=== PATIENT | male | born 1950 | race Caucasian/White ===

== ENCOUNTER 2021-09-05 20:23 | Inpatient (IN) | payer MEDICARE, BC, SELFPAY ==
[2021-09-05] VITALS (7 sets, daily range): BP systolic 194–224; BP diastolic 87–130; PULSE 71–78; RESP 15–16; TEMP 36.1–36.7; O2SAT 98–99; BMI 37.7
--- NOTE | 2021-09-05 20:43 | EKG12_ITS ---
Test Reason : HIGH BP Blood Pressure : / mmHG Vent. Rate : 078 BPM Atrial Rate : 468 BPM P-R Int : 000 ms QRS Dur : 096 ms QT Int : 394 ms P-R-T Axes : 000 056 054 degrees QTc Int : 449 ms Atrial fibrillation Septal infarct , age undetermined Abnormal ECG Confirmed by TYLER CHRIS, JOCELYN ([id number]), editorial clerk DENITA HELLER ([id number]) on 09/08/2021 11:10:20 AM Referred By: MEG Confirmed By:JOCELYN SCOTT MD
--- NOTE | 2021-09-05 20:44 | EX.ED.DYSGE1 ---
HPI History of Present Illness Chief Complaint: Hypertension Detail of Chief Complaint: High blood pressure Informant: patient Narrative Narrative: Patient presents to the emergency department with complaint of elevated blood pressure over the last 3 days. Patient states that he has a blood pressure cuff at home and has been checking it regularly and has noted that over the last 3 days his systolics been over 200. Patient denies headache, chest pain, or shortness of breath. Patient says she has no complaints with it. Patient states he has been on blood pressure medicine for quite some time and normally his pressure runs around 148/84. Patient denies recent illness. [facility] Medical History (Updated 09/05/21 @ 22:[address] Chanda Palm, DO) Hypertension Home Medications lisinopril-hydrochlorothiazide 1 tab PO DAILY 09/05/21 [History Last Taken Unknown] multivitamin 1 cap PO DAILY 09/05/21 [History Last Taken Unknown] omega-3 fatty acids [Fish Oil] 1,000 mg PO DAILY 09/05/21 [History Last Taken Unknown] Allergy/AdvReac Type Severity Reaction Status Date / Time No Known Allergies Allergy Verified 09/05/21 20:25 Social History Smoking Status: Never smoker [facility] ED Constitutional Constitutional ED: Reports systems reviewed and no addt'l complaints, except as documented; Denies body ache(s), change in weight or chills Eyes Eyes: Denies acute decrease in peripheral vision, change in vision, double vision or loss of vision ENT ENT ED: Reports none; Denies ear pain, lip swelling, loss taste/smell, neck pain, otalgia or sore throat Cardiovascular Cardiovascular: Reports none; Denies abdominal pain, chest pain with activity, leg edema, lightheadedness, palpitations, rapid heart rate or syncope Respiratory/Chest Respiratory/Chest: Reports none; Denies change in mental status, dry cough, dyspnea, hemoptysis, shortness of breath at rest or shortness of breath with exertion Gastrointestinal Gastrointestinal: Reports none; Denies abdominal pain, change in stool character, diarrhea, hematemesis, hematochezia, melena, rectal bleeding or vomiting Genitourinary Genitourinary ED: Reports none; Denies abdominal discomfort, anuria, dysuria, genital pain or polyuria Musculoskeletal Musculoskeletal: Reports none; Denies arthralgias, back pain, difficulty walking, extremity pain, muscle weakness or myalgias Integumentary Reports none; Denies abscess or rash Neurologic Neurologic: Reports none; Denies abnormal gait, confusion, focal weakness, frequent falls, headache(s), loss of vision, numbness, paresthesias, radicular pain, vertigo or weakness Psychiatric Psychiatric: Reports systems reviewed and no addt'l complaints, except as documented and none; Denies behavioral changes, confusion, difficulty concentrating, hallucinations, suicidal ideation, tactile hallucinations or visual hallucinations Endocrine Endocrinology: Denies none, cold intolerance, excessive sweating, fatigue or heat intolerance Hematologic/Lymphatic Hematologic/Lymphatic: Reports none; Denies anemia, easy bleeding or easy bruising Allergic/Immunologic Allergic/Immunologic ED: Denies as per HPI, none, lip swelling, mouth swelling, throat swelling, tongue swelling or hives EXAM Physical Exam Const Vital Signs: 09/05/21 20:25 09/05/21 20:37 09/05/21 20:40 Temperature 96.9 F L Temperature Source Temporal Pulse Rate 78 Respiratory Rate 16 Respiratory Effort Normal Non-Labored Respiratory Pattern Normal Blood Pressure 224/114 H 210/108 H Blood Pressure Mean 150 142 Pulse Ox 98 Oxygen Delivery Method Room Air 09/05/21 21:33 Temperature Temperature Source Pulse Rate Respiratory Rate Respiratory Effort Respiratory Pattern Blood Pressure 215/130 H Blood Pressure Mean 158 Pulse Ox Oxygen Delivery Method Positive well nourished and well developed General Appearance ED: well developed and NAD HEENT Reports TM's clear and moist mucous membranes normocephalic and atraumatic; Negative for trauma or tenderness Tympanic Membrane ED: Yes TM's clear Eyes PERRL and EOMs intact bilaterally General Eye ED: Negative for pale conjunctiva or scleral icterus Neck no lymphadenopathy, supple and no JVD General: Negative for tenderness Chest Wall inspection of chest normal and palpation of chest normal Chest: Negative for tenderness Resp normal respiratory effort and clear to auscultation bilaterally Effort and Inspection: Negative for respiratory distress or pain with movement Auscultation: Negative for rhonchi, wheezes or diminished lung sounds Cardio regular rate, regular rhythm, S1 normal heart sound, S2 normal heart sound and no murmurs Peripheral Pulses: pulses 2+ throughout GI normal to inspection, nondistended, normoactive bowel sounds, soft to palpation, non-tender, non-distended and no masses Back/Spine no CVA tenderness and no thoracic nor lumbar tenderness Extremity normal to inspection General Extremety ED: Negative for edema General Extremity: Negative for edema Neuro oriented x3, CN's II-XII intact bilaterally, no sensory deficits noted and gait normal Sensorium / Orientation: awake, alert, oriented to person, oriented to place and oriented to time Motor Exam: strength 5/5 throughout and strength abnormal Psych mental status grossly normal Skin no rashes or lesions noted and no wounds MDM MDM MDM Narrative Medical decision making narrative: IV line established on arrival. EKG obtained showed atrial fibrillation. Patient's heart rate in the 70s. He was given hydralazine 5 mg IV for lowering of his blood pressure. Case was discussed with hospitalist will evaluate patient for admission for new onset A. fib and hypertension that is uncontrolled. Patient has a CHADS2 score of 2. Lab Data Attestation: I reviewed the patient's lab results. Labs: Laboratory Results - last 24 hr 09/05/21 09/05/21 20:52 20:52 WBC 10.4 RBC 5.69 Hgb 16.0 Hct 47.6 MCV 83.7 MCH 28.1 MCHC 33.6 RDW Std Deviation 41.4 RDW Coeff of Barby 13.6 Plt Count 219 MPV 12.2 H Immature Gran % (Auto) 0.300 Neut % (Auto) 59.5 Lymph % (Auto) 28.9 [place] % (Auto) 8.8 Eos % (Auto) 2.0 Baso % (Auto) 0.5 Absolute Neuts (auto) 6.2 Absolute Lymphs (auto) 2.99 Nucleated RBC % 0 Sodium 139 Potassium 3.6 Chloride 103 Carbon Dioxide 27.0 Anion Gap 9 BUN 16 Creatinine 1.08 Estim Creat Clear Calc 62.45 Est GFR (MDRD) Af Amer 87 Est GFR (MDRD) Non-Af 72 BUN/Creatinine Ratio 14.8 Glucose 118 H Calcium 9.8 Troponin I High Sens 12 EKG Initial EKG: Attestation: I personally reviewed and interpreted this EKG as follows: Comments: Atrial fibrillation with ventricular rate of 78 bpm with old septal infarct Discharge Plan Dx/Rx/DC Orders Clinical Impression: Atrial fibrillation, Hypertension Disposition Disposition: Acute Care [facility]
[2021-09-05 21:09] LABS: Absolute Lymphocyte Count 2.99 X10^3/uL (0.83-4.51); Absolute Neutrophil Count 6.2 X10^3/uL (2.0-7.7); Basophil# 0.05 X10^3/uL; Basophil% 0.5 % (0-1); Eosinophil# 0.21 X10^3/uL; Hematocrit 47.6 % (40-54); Lymphocyte # 2.99 X10^3/ul (0.83-4.51); Lymphocyte % 28.9 % (19-41); Mean Corp Hgb Conc 33.6 g/dL (32-36); Mean Corpuscular Hgb 28.1 pg (27.0-32.0); Mean Corpuscular Volume 83.7 fL (80-94); Mean Platelet Vol. 12.2 fl (6.2-12.0); Monocyte# 0.91 X10^3/uL; Monocyte% 8.8 % (0-10); NRBC Flagged by Analyzer 0 % (0-5); Neutrophil # 6.17 X10^3/uL (2.7-7.7); Neutrophil % 59.5 % (47-70); Platelet Count 219 K/mm3 (150-450); RBC Distribution Width CV 13.6 % (11.6-14.6); RBC Distribution Width SD 41.4 fl (35.1-43.9); Red Blood Count 5.69 M/mm3 (4.6-6.2); White Blood Count 10.4 K/mm3 (4.4-11.0)
[2021-09-05 21:26] LABS: Anion Gap 9 (5-15); BUN 16 mg/dL (7-18); BUN/Creat Ratio 14.8 RATIO (10-20); Calcium,Total 9.8 mg/dL (8.5-10.1); Chloride 103 mmol/L (98-107); Creatinine, Serum 1.08 mg/dL (0.70-1.30); EST Glomerular Filtration Rate 72 mL/min (>60); Est Glom Filt Rate - Afr Amer 87 mL/min (>60); Estimated Creatinine Clearance 62.45 ml/min; Glucose 118 mg/dL (74-106); Potassium 3.6 mmol/L (3.5-5.1); Sodium Level 139 mmol/L (136-145); Troponin-I HS 12 pg/mL (3.0-78.0)
[2021-09-05] MEDS: hydrALAZINE 20 MG/ML Vial 5 MG IV ×2 (21:33→23:55)
--- NOTE | 2021-09-05 22:38 | PCM.HP.STD ---
[facility] - General General Date of Admission: 09/05/21 HPI Narrative ROLY JOSHUA, is a 70 M with a significant history of hypertension and borderline diabetes who presents to emergency department with a 3-day history of persistent hypertension. He reports his home blood pressure has been going to the 200s and then it will come back down. Patient takes lisinopril 20 mg?hydrochlorothiazide 25 mg each morning that he is compliant with. He reports that outside the regimen above about a year ago or some years back he was placed on an extra 10 mg of lisinopril at night but he thought it was not working so he stopped taking the extra dose of lisinopril. He reports that 2 days before presentation his PCP resume him on the extra 10 mg of lisinopril that he has been compliant with except on the night of presentation. At the emergency department his systolic blood pressure was in the 220s. At the Emergency Department he was noticed to be in Afib with controlled ventricular rate. [facility] Medical History Hypertension Home Medications lisinopril 10 mg PO QHS 09/05/21 [History Last Taken Unknown] lisinopril-hydrochlorothiazide 1 tab PO DAILY 09/05/21 [History Last Taken Unknown] multivitamin 1 cap PO DAILY 09/05/21 [History Last Taken Unknown] omega-3 fatty acids [Fish Oil] 1,000 mg PO DAILY 09/05/21 [History Last Taken Unknown] Allergy/AdvReac Type Severity Reaction Status Date / Time No Known Allergies Allergy Verified 09/05/21 20:25 Family History Other Cancer Surgical History no surgical history no surgical history Social History Smoking Status: Never smoker ROS ROS Narrative Constitutional: Denies fever, chills, fatigue, anorexia and change in weight Eyes: Denies blurry vision, change in eye color, change in vision, discharge from eye(s), double vision, erythema, eye pain, loss of vision or other HEENT: Denies abnormal hearing, dysphagia, ear pain, epistaxis, headache(s), hearing loss, nasal congestion, nasal discharge, post nasal drip, sinus pressure, sore throat or other Cardiovascular: Denies chest pain or palpitations. Denies dyspnea on exertion, orthopnea and paroxysmal nocturnal dyspnea Respiratory/Chest: Denies cough, excessive phlegm production, shortness of breath with exertion and wheezing Gastrointestinal: Denies abdominal pain, coffee ground emesis, constipation, diarrhea, dyspepsia, hematemesis, hematochezia, loose stools, melena, nausea, vomiting or other Genitourinary: Denies burning urination, difficulty urinating, dysuria, hematuria, nocturia, urinary frequency, urinary hesitancy, urinary incontinence, urinary urgency or other Musculoskeletal: Denies arthralgias, back pain, joint pain, joint stiffness, joint swelling, myalgias, neck pain or other Neurologic: Denies abnormal gait, abnormal speech, confusion, disequilibrium, dizziness, focal weakness, headache(s), numbness, paresthesias, seizure-like activity, seizures, syncope, tingling, tremor(s) or other Psychiatric: Denies anxiety, depression, homicidal ideation, suicidal ideation or other Endocrinology: Denies change in body appearance, cold intolerance, excessive sweating, heat intolerance, polydipsia, polyuria or other Hematologic/Lymphatic: Denies anemia, easy bleeding, easy bruising, lymphadenopathy or other Integumentary: Denies rashes Allergic/Immunologic: Denies rhinitis, hives, eczema, asthma or other Vital Signs Vital Signs Vital Signs: 09/05/21 20:25 09/05/21 20:37 09/05/21 20:40 Temperature 96.9 F L Temperature Source Temporal Pulse Rate 78 Respiratory Rate 16 Respiratory Effort Normal Non-Labored Respiratory Pattern Normal Blood Pressure 224/114 H 210/108 H Blood Pressure Mean 150 142 Pulse Ox 98 Oxygen Delivery Method Room Air 09/05/21 21:33 Temperature Temperature Source Pulse Rate Respiratory Rate Respiratory Effort Respiratory Pattern Blood Pressure 215/130 H Blood Pressure Mean 158 Pulse Ox Oxygen Delivery Method Weight Weight: 112.491 kg Body Mass Index (BMI) 37.7 Physical Exam Narrative Physical exam: General: Well-nourished, well-developed. Head: Normocephalic, atraumatic, no tenderness Eyes: PERRLA, EOMI ENT, no trauma, moist mucous membranes, no rhinorrhea Neck: Nontender, full range of motion, no spinal tenderness, deformities, step-off CVS: Regular rate and rhythm. S1-S2 present. No murmur, gallop or rub. Respiratory : clear to auscultation bilaterally, chest wall nontender, no wheezing Abdomen: Soft, nontender, nondistended, normal bowel sounds, no masses : Deferred Back: Nontender, no CVA tenderness, no midline spinal tenderness, deformities, step-offs Extremities: Nontender full range of motion, no trauma Skin: Normal color, no trauma, abrasions Neuro: Alert, oriented, cranial nerves II through XII grossly intact. Psychiatry: Normal mood. Normal affect. Not depressed. Not anxious. Results Lab / Micro Data Result Diagrams: 09/05/21 20:52 09/05/21 20:52 Labs: Laboratory Results - last 24 hr 09/05/21 20:52: WBC 10.4, RBC 5.69, Hgb 16.0, Hct 47.6, MCV 83.7, MCH 28.1, MCHC 33.6, RDW Std Deviation 41.4, RDW Coeff of Barby 13.6, Plt Count 219, MPV 12.2 H, Immature Gran % (Auto) 0.300, Neut % (Auto) 59.5, Lymph % (Auto) 28.9, [place] % (Auto) 8.8, Eos % (Auto) 2.0, Baso % (Auto) 0.5, Absolute Neuts (auto) 6.2, Absolute Lymphs (auto) 2.99, Nucleated RBC % 0 09/05/21 20:52: Sodium 139, Potassium 3.6, Chloride 103, Carbon Dioxide 27.0, Anion Gap 9, BUN 16, Creatinine 1.08, Estim Creat Clear Calc 62.45, Est GFR (MDRD) Af Amer 87, Est GFR (MDRD) Non-Af 72, BUN/Creatinine Ratio 14.8, Glucose 118 H, Calcium 9.8, Troponin I High Sens 12 Assessment & Plan Assessment/Plan (1) Hypertensive urgency: (2) Atrial fibrillation: QUALIFIERS: Atrial fibrillation type: unspecified Qualified Code(s): I48.91 - Unspecified atrial fibrillation PLAN: Hypertensive urgency We will give him an extra dose of his lisinopril?hydrochlorothiazide 20 mg - 25 mg. And then will start him on double dose of this regimen.. Hydralazine every 4 hours as to keep blood pressure below 170. Plan is to keep systolic blood pressure less than 25% of highest for the next 24 hours. Newly diagnosed a flutter/A. fib Telemetric strip on monitor personal interpreted showed a flutter and atrial fibrillation with controlled ventricular rate. Review of labs showed potassium of 3.6. Replace potassium. Check magnesium. Check TSH. Get echocardiogram. Start patient on Eliquis. Trend BMP DVT prophylaxis: Not indicated as patient has been started on Eliquis for A. fib. Charges/Coding Visit Charges Inpatient E&M: 47119 Init Hosp L3
[2021-09-05 22:58] LABS: Magnesium 2.2 mg/dL (1.6-2.6)
--- NOTE | 2021-09-05 23:01 | ECHOD_ITS ---
Reason For Study: A. fib Procedure This was a 2D Doppler, Color Flow transthoracic echocardiogram. Exam performed portable in patient room. Left Ventricle Normal LV size. Severe concentric left ventricular hypertrophy. Left ventricular systolic function is normal. The estimated ejection fraction is 60 %. Unable to assess diastolic dysfunction due to arrhythmia. No regional wall motion abnormalities noted. Right Ventricle Normal RV size. Normal systolic function. Atria The left atrium is mildly enlarged. Normal right atrium. Mitral Valve Normal mitral valve. Tricuspid Valve Normal tricuspid valve. Mild to moderate (1-2+) tricuspid valve insufficiency. Pulmonary artery systolic pressure is 46 mmHg. Aortic Valve Trisinus/trileaflet aortic valve. Mild focal aortic valve calcification. Pulmonic Valve Normal pulmonic valve. Great Vessels Mild to moderately dilated aortic root. The pulmonary artery is normal size. Normal inferior vena cava. Pericardium/Pleural No pericardial effusion. MMode/2D Measurements & Calculations LVIDd: 3.3 cm IVSd: 2.0 cm Ao root diam: 4.0 cm LVIDs: 1.8 cm LVPWd: 1.5 cm RVDd: 3.3 cm FS: 45.2 % LAV(MOD-bp): 80.9 ml LA A4 area: 22.9 cm2 LA dimension(2D): 4.4 cm LAV(MOD-bp) Indexed: 36.1 ml/m2 LAV(MOD-sp2): 89.3 ml LAV(MOD-sp4): 72.0 ml RA A4 area: 21.9 cm2 Doppler Measurements & Calculations MV E max peng: 133.9 cm/sec Ao V2 max: 151.2 cm/sec LV V1 max: 126.9 cm/sec Ao max P.1 mmHg LV V1 max P.5 mmHg PA V2 max: 101.0 cm/sec TR max peng: 326.2 cm/sec TR max P.6 mmHg ECHO/Echo Complete Interpretation Summary Normal LV size. Severe concentric left ventricular hypertrophy. Left ventricular systolic function is normal. The estimated ejection fraction is 60 %. Pulmonary artery systolic pressure is 46 mmHg. Unable to assess diastolic dysfunction due to arrhythmia. Ordering Physician: Aamir Lucas Referring Physician: Morgan Amezquita Performed By: Le Gonsales RDCS
[2021-09-05] MEDS: APIXABAN 5 MG TABLET PO (23:51)
[2021-09-06] VITALS (7 sets, daily range): BP systolic 156–189; BP diastolic 86–98; PULSE 83–94; RESP 18–19; TEMP 36.1–36.8; O2SAT 95–96
[2021-09-06] MEDS: Potassium Chloride Oral Tablet 20 MEQ 40 MEQ PO (00:32)
[2021-09-06] MEDS: hydrALAZINE 20 MG/ML Vial 5 MG IV (05:25)
--- NOTE | 2021-09-06 05:33 | PCS.PANDOC ---
PANDEMIC DOCUMENTATION INITIATED: Date: 09/05/2021 Time: 3985
[2021-09-06 08:00] LABS: Anion Gap 9 (5-15); BUN 14 mg/dL (7-18); BUN/Creat Ratio 17.7 RATIO (10-20); Calcium,Total 9.4 mg/dL (8.5-10.1); Chloride 107 mmol/L (98-107); Creatinine, Serum 0.79 mg/dL (0.70-1.30); EST Glomerular Filtration Rate 103 mL/min (>60); Est Glom Filt Rate - Afr Amer 125 mL/min (>60); Estimated Creatinine Clearance 67.45 ml/min; Glucose 109 mg/dL (74-106); Potassium 3.6 mmol/L (3.5-5.1); Sodium Level 138 mmol/L (136-145); Thyroid Stim Hormone (TSH) 1.28 uIU/mL (0.358-3.74)
--- NOTE | 2021-09-06 10:20 | CASEMGMT ---
RN CM Face to Face with patient for initial transition planning/care coordination assessment. RN CM introduced self and role at [facility]. Patient lying in bed, alert and oriented, at bedside. Patient willing to participate in assessment and is able to answer all questions appropriately. Care providers, pharmacy, and demographics verified. Patient wishes to discharge home, denies need for home health at this time. Patient states he has no further needs or concerns at this time. CM to follow for discharge planning needs that may arise. PCP: Bia Specialists: None Preferred Pharmacy: [facility] for [facility] retail at discharge. Insurance: Reva WADDELL Prescription Benefit: yes Living Will/HPOA: none LNOK: Living Arrangements: Patient lives with in a single story home with 1 step to enter. Patient states he is independent at home. Transportation: self/ DME/HHC: Patient states he has BP cuff at home. Patient denies previous HHC or SNF. Disposition Plan: Patient to discharge home with family support and follow-up plans in place. Rosemarie ALBA, RN, CM
[2021-09-06] MEDS: APIXABAN 5 MG TABLET PO (10:25)
[2021-09-06] MEDS: Lisinopril 40 MG Tablet PO (10:26)
[2021-09-06] MEDS: Multivitamins,Therapeutic Tablet 1 TABLET PO (10:26)
[2021-09-06] MEDS: Omega-3 Acid Ethyl Esters 1 GM Capsule PO (10:26)
[2021-09-06] MEDS: hydroCHLOROthiazide 25 MG Tablet PO (10:26)
--- NOTE | 2021-09-06 12:52 | PCM.DC.SUM ---
Providers Date of Admission: 09/05/21 Primary Care Physician: Dr. Morgan Amezquita MD Reason For Visit: HYPERTENSION URGENCY, AFIB Diagnosis Discharge Diagnosis (1) Hypertensive urgency: Status: Acute Code(s): I16.0 - Hypertensive urgency (2) Atrial fibrillation: Status: Acute Code(s): I48.91 - Unspecified atrial fibrillation Qualifiers: Atrial fibrillation type: unspecified Qualified Code(s): I48.91 - Unspecified atrial fibrillation Medications at Discharge Home Medications lisinopril 10 mg PO QHS 09/05/21 lisinopril-hydrochlorothiazide 1 tab PO DAILY 09/05/21 multivitamin 1 cap PO DAILY 09/05/21 omega-3 fatty acids 1,000 mg PO DAILY 09/05/21 amlodipine 10 mg PO DAILY #90 tab 09/06/21 apixaban [Eliquis] 5 mg PO BID #120 tab 09/06/21 metoprolol tartrate 25 mg PO BID #120 tab 09/06/21 Hospital Course Summary of Care Provided Minutes Spent on Discharge: 35 Hospital Course: Patient 70-year-old gentleman who presented to the emergency department with markedly elevated blood pressure 1. Acute hypertensive urgency ?Admitted to a monitored bed adjusted patient medications 2. New onset A. fib/flutter ?Patient was started on systemic anticoagulation with Eliquis and beta-blockers for rate control Physical Exam Narrative GENERAL: cooperative HEENT: Atraumatic; EYES; Anicteric, Normal Conjunctiva NECK; supple, normal thyroid, RESPIRATORY: Diminished to auscultation CARDIOVASCULAR: Regular S1 S2, GI: soft, normoactive bowel sounds, : No Renal angle tenderness; EXTREMITIES: No edema, no clubbing, MUSCULOSKELETAL: no muscle waisting NEURO: Awake; no lateralizing signs. SKIN: No Rash PSYCH; Flat affect Weight / BMI Weight Weight: 112.491 kg Body Mass Index (BMI) 37.7 ABG / Lab / Microbiology Data Result Diagrams: 09/05/21 20:52 09/06/21 06:15 Laboratory: Laboratory Results - last 24 hr 09/05/21 20:52: WBC 10.4, RBC 5.69, Hgb 16.0, Hct 47.6, MCV 83.7, MCH 28.1, MCHC 33.6, RDW Std Deviation 41.4, RDW Coeff of Barby 13.6, Plt Count 219, MPV 12.2 H, Immature Gran % (Auto) 0.300, Neut % (Auto) 59.5, Lymph % (Auto) 28.9, [place] % (Auto) 8.8, Eos % (Auto) 2.0, Baso % (Auto) 0.5, Absolute Neuts (auto) 6.2, Absolute Lymphs (auto) 2.99, Nucleated RBC % 0 09/05/21 20:52: Sodium 139, Potassium 3.6, Chloride 103, Carbon Dioxide 27.0, Anion Gap 9, BUN 16, Creatinine 1.08, Estim Creat Clear Calc 62.45, Est GFR (MDRD) Af Amer 87, Est GFR (MDRD) Non-Af 72, BUN/Creatinine Ratio 14.8, Glucose 118 H, Calcium 9.8, Troponin I High Sens 12 09/05/21 20:52: Magnesium 2.2 09/06/21 06:15: Sodium 138, Potassium 3.6, Chloride 107, Carbon Dioxide 22.0, Anion Gap 9, BUN 14, Creatinine 0.79, Estim Creat Clear Calc 67.45, Est GFR (MDRD) Af Amer 125, Est GFR (MDRD) Non-Af 103, BUN/Creatinine Ratio 17.7, Glucose 109 H, Calcium 9.4, TSH 1.28 D/C Instructions Discharge Diet: No restrictions Discharge Activity: Return to Normal Activity Call your doctor if you observe: Fever of 101 or Higher, Shortness of breath, Fainting spells and Chest pain Meaningful Use Info Meaningful Use Diagnoses (Choose all that apply): None applicable Discharge Plan Admission Admit Date/Time: 09/05/21 22:24 Attending Provider: Matt Parada Primary Care Provider: Morgan Amezquita Discharge Orders/Prescriptions Prescriptions: New amlodipine 10 mg tablet 10 mg PO DAILY Qty: 90 RF: 0 Eliquis 5 mg Tablet 5 mg PO BID Qty: 120 RF: 0 metoprolol tartrate 25 mg tablet 25 mg PO BID Qty: 120 RF: 0 Continued lisinopril-hydrochlorothiazide 20-25 mg Tablet 1 tab PO DAILY RF: 0 multivitamin Capsule 1 cap PO DAILY RF: 0 omega-3 fatty acids Capsule 1,000 mg PO DAILY RF: 0 lisinopril 10 mg Tablet 10 mg PO QHS RF: 0 Referrals / Follow Up: Morgan Amezquita MD [Primary Care Provider] - In 1 Week (Call to schedule an appointment within 2 to 3 days) Disposition Disposition (needs filled in before D/C Order can be placed): Home, Self Care Charges/Coding Visit Charges Inpatient E&M: 93816 Disch Hosp
--- NOTE | 2021-09-06 13:31 | CASEMGMT ---
[facility] savings card provided to patient.
== END 2021-09-06 14:41 | disposition home or self-care (01) | DRG 305 ==
LOC: ED 22:33 → PCU 23:00 → MS2 09-06 12:54
PROVIDERS: Admitting Provider Hospitalist; Emergency Provider Emergency Medicine; PCP Family Medicine; Visit Provider Internal Medicine
DX: I16.0 Hypertensive urgency (principal); I48.92 Unspecified atrial flutter; I48.91 Unspecified atrial fibrillation; I10 Essential (primary) hypertension; R73.03 Prediabetes; Z79.01 Long term (current) use of anticoagulants
CPT/HCPCS: 36415; 80048; 83735; 84443; 84484; 85025; 93005; 93306; 99285; Q9957; A4216

== ENCOUNTER 2021-11-09 11:10 | Outpatient (CLI) | payer MEDICARE, BC, SELFPAY ==
[2021-11-09 12:36] LABS: Erythrocyte Sedimentation Rate 8 mm/hr (0-20)
[2021-11-09 13:06] LABS: CRP < 2.90 mg/L (0.0-3.0); LDH 243 U/L (87-241)
[2021-11-10 13:08] LABS: Anti-Centromere B Ab <0.2 AI (0.0-0.9); Anti-Chromatin <0.2 AI (0.0-0.9); Anti-Jo <0.2 AI (0.0-0.9); Anti-Scleroderma-70 AB <0.2 AI (0.0-0.9); RNP Ab <0.2 AI (0.0-0.9); SJOGREN'S Anti-SS-A test < 0.2 AI (0.0-0.9); SJOGREN'S Anti-SS-B test < 0.2 AI (0.0-0.9); Smith Ab <0.2 AI (0.0-0.9)
[2021-11-10 15:30] LABS: Anti-dsDNA Ab <1 IU/mL (0-9)
[2021-11-10 17:54] LABS: Anti-Mitochondrial AB <20.0 Units (0.0-20.0)
[2021-11-14 01:06] LABS: Angiotensin Convert Enzyme < 15 U/L (14-82); Ceruloplasmin 26.4 mg/dL (16.0-31.0); Cytoplasmic Ab (C-ANCA) <1:20 titer (Neg:<1:20); Endomysial Antibody IgA Negative (Negative); HEPATITIS B SURFACE AG Negative (Negative); Hepatitis A IgM Antibody Negative (Negative); Hepatitis B Core AB IgM Negative (Negative); Immunoglobulin A 274 mg/dL (61-437); Immunoglobulin E 48 IU/mL (6-495); Immunoglobulin G 991 mg/dL (603-1613)
[2021-11-14 13:29] LABS: Anti-Smooth Muscle ABS 7 Units (0-19); CMV Antibody IgG < 0.60 U/mL (0.00-0.59); Hep C Antibodies <0.1 s/co ratio (0.0-0.9); Immunoglobulin M 50 mg/dL (20-172); Perinuclear Ab (P-ANCA) <1:20 titer (Neg:<1:20); t-Transglutaminase IgA <2 U/mL (0-3)
== END 2021-11-09 23:59 | disposition home or self-care (01) ==
LOC: LAB 11:13
PROVIDERS: PCP Family Medicine; Referring Provider Internal Medicine Gastroenterology; Visit Provider Internal Medicine Gastroenterology
DX: K74.60 Unspecified cirrhosis of liver (principal)
CPT/HCPCS: 36415; 80074; 82164; 82390; 82784; 82785; 83516; 83615; 85652; 86140; 86225; 86235; 86255; 86256; 86644

== ENCOUNTER 2021-11-18 13:01 | Outpatient (CLI) | payer MEDICARE, BC, SELFPAY ==
--- NOTE | 2021-11-18 13:03 | CT_ITS ---
STUDY: CT ABDOMEN AND PELVIS WITH CONTRAST REASON FOR EXAM: Male, 70 years old. Cirrhosis RADIATION DOSAGE (If Supplied By Facility): CTDIvol = ( 18.03 ) mGy, DLP = ( 1241.01 ) mGycm TECHNIQUE: Transaxial images were obtained from the dome of the diaphragm to the symphysis pubis with oral contrast. Oral and amp; IV Readi-CAT and amp; 100mL Isovue-300 was administered. Sagittal and coronal images were reconstructed. Individualized dose optimization techniques were used for this CT. COMPARISON: None. FINDINGS: The visualized lung bases are unremarkable. Coronary artery calcification. There is decreased attenuation of the liver consistent with steatosis. Normal gallbladder and extrahepatic biliary system. Normal spleen. Normal pancreas. Normal bilateral adrenal glands. There is a 3.4 cm x 3.2 cm cyst in the lateral inferior aspect of the right kidney. Small peripheral left renal cyst. There is evidence of a left retroaortic renal vein. There is a small hiatal hernia. Normal small intestine. There are multiple colonic diverticula consistent with diverticulosis. The appendix is visualized and appears normal. There is scattered atherosclerotic calcification of the abdominal aorta, without a demonstrated aneurysm. Normal inferior vena cava. Normal retroperitoneum. Normal urinary bladder. There are prostatic calcifications. Punctate penile calcifications. Normal abdominal wall. There are mild degenerative changes of the visualized lumbar spine. CT/Abdomen/Pelvis W IV Cont ONLY IMPRESSION: Fatty infiltration of the liver. Sigmoid diverticulosis. Bilateral renal cysts more prominent on the right side. Electronically Signed: Walter Marie MD at 13:45 EST ,
[2021-11-18 13:21] LABS: CREATININE FINGERSTICK 0.6 mg/dL (0.70-1.30); EGFR FINGERSTICK > 60.0000 mL/min (>60)
== END 2021-11-18 23:59 | disposition home or self-care (01) ==
LOC: CT 13:02
PROVIDERS: PCP Family Medicine; Referring Provider Internal Medicine Gastroenterology; Visit Provider Internal Medicine Gastroenterology
DX: K74.60 Unspecified cirrhosis of liver (principal)
CPT/HCPCS: 74177; Q9967

== ENCOUNTER → 2022-01-24 | Outpatient (CLI) | payer MEDICARE, BC, SELFPAY ==
--- NOTE | 2022-01-24 08:01 | US_ITS ---
STUDY: ABDOMINAL ULTRASOUND - ELASTOGRAPHY REASON FOR VISIT: Male, 71 years old. Fatty infiltration of the liver. TECHNIQUE: Liver stiffness measurements were obtained on a [employer] RS 85 ultrasound machine using a CA 1-7 probe following the SRU guidelines. 3 measurements were obtained using a 2-D-SWE method. The IQR/M was 14% suggesting a quality data set. TECHNICAL QUALITY: Adequate. COMPARISON: Comparison is made with prior study done earlier today. FINDINGS: Liver: Fatty infiltration of the liver. Median liver stiffness measured 13 kPa. US/Elastography Parenchyma/Organ IMPRESSION: Liver stiffness measures 13 kPa compatible with F3-F4 (Moderate to severe liver fibrosis) Metavir score. Electronically Signed: Walter Marie MD at 11:00 EDT ,
--- NOTE | 2022-01-24 08:04 | US_ITS ---
STUDY: ABDOMINAL ULTRASOUND - RIGHT UPPER QUADRANT REASON FOR VISIT: Male, 71 years old FATTY LIVER TECHNIQUE: Ultrasound evaluation of the right upper quadrant was performed with real-time and static cho-scale imaging. TECHNICAL QUALITY: Adequate. COMPARISON: Comparison is made with prior CT scan of the abdomen and pelvis dated 11/18/2021. FINDINGS: Liver: The liver measures 15.5 cm. There is increased echogenicity consistent with fatty infiltration. The bile ducts are within normal limits. There is hepatic color flow. The direction of portal flow is hepatopetal. There is no demonstrated mass lesion. Gallbladder: Normal distended gallbladder. The gallbladder wall measures 2 mm. There is a negative sonographic Nichols''s sign. There is no pericholecystic fluid. There are no gallstones. Common Bile Duct (C.B.D.): The common bile duct measures 5 mm. Pancreas: There is nonvisualization of the pancreas due to overlying bowel gas. Right Kidney: Normal size of the right kidney. The right kidney measures 11.8 cm x 6.5 cm x 6.1 cm. Normal renal cortex. The right cortex measures 1.9 cm. There is a 4 cm x 3.9 cm x 3 cm cyst in the lower pole of the right kidney. There is no right hydronephrosis. US/Abdomen Limited IMPRESSION: Fatty infiltration of the liver. Right renal cyst. Electronically Signed: Walter Marie MD at 10:56 EDT ,
== END | disposition home or self-care (01) ==
LOC: US 08:00
PROVIDERS: PCP Family Medicine; Referring Provider Nurse Practitioner Adult Health; Visit Provider Nurse Practitioner Adult Health
DX: K76.0 Fatty (change of) liver, not elsewhere classified (principal)
CPT/HCPCS: 76705; 76981

== ENCOUNTER → 2022-01-31 | Outpatient (CLI) | payer MEDICARE, BC, SELFPAY ==
[2022-01-31 08:03] LABS: Platelet Count 207 K/mm3 (150-450)
[2022-01-31 08:16] LABS: International Normalized Ratio 1.1; Prothrombin Time (Protime)PT. 14.1 SECONDS (11.7-14.9)
[2022-01-31 08:17] LABS: Partial Thromboplast Time 32.7 Seconds (24.1-36.2)
[2022-01-31 08:36] LABS: AST(SGOT) 26 U/L (15-37); Alanine Aminotransfer ALT/SGPT 28 U/L (16-61); Albumin, Serum 3.8 g/dL (3.2-5.0); Alkaline Phosphatase 98 U/L (45-117); Bilirubin, Direct 0.32 mg/dL (0.00-0.30); Globulin 3.8 g/dL (2.2-4.2); LDH 313 U/L (87-241); Protein, Total 7.6 g/dL (6.4-8.2)
[2022-02-01 16:43] LABS: AFP, Tumor Marker 1.4 ng/mL (0.0-8.4)
== END | disposition home or self-care (01) ==
PROVIDERS: PCP Family Medicine; Referring Provider Nurse Practitioner Adult Health; Visit Provider Nurse Practitioner Adult Health
DX: K76.0 Fatty (change of) liver, not elsewhere classified (principal); Z79.01 Long term (current) use of anticoagulants; Z79.899 Other long term (current) drug therapy; Z53.09 Procedure and treatment not carried out because of other contraindication
CPT/HCPCS: 36415; 80076; 82105; 83036; 83615; 85049; 85610; 85730

== ENCOUNTER → 2024-11-22 | Outpatient (CLI) | payer MEDICARE, BC, SELFPAY ==
[2024-11-22 10:15] LABS: AST(SGOT) 28 U/L (<=37); Alanine Aminotransfer ALT/SGPT 20 U/L (<=46); Albumin, Serum 4.2 g/dL (3.4-4.8); Alkaline Phosphatase 91 U/L (40-129); Bilirubin, Direct 0.63 mg/dL (0.00-0.30); Cholesterol 180 mg/dL (<=200); High Density Lipoprotein 49 mg/dL; Low Density Lipoprotein Calc. 115 mg/dL; Protein, Total 7.1 g/dL (5.9-8.4); Total Bilirubin 1.94 mg/dL (0.00-1.30); Triglycerides 80 mg/dL; Very Low Density Lipoprotein 16 mg/dL (5-40); cholesterol:hdl ratio screen 3.67
== END | disposition home or self-care (01) ==
PROVIDERS: Referring Provider Nurse Practitioner Family; Visit Provider Nurse Practitioner Family
DX: I10 Essential (primary) hypertension (principal); E78.5 Hyperlipidemia, unspecified; K76.0 Fatty (change of) liver, not elsewhere classified
CPT/HCPCS: 36415; 80061; 80076